=== PATIENT | female | born 1950 | race Hispanic/Latino ===

== ENCOUNTER 2017-03-16 10:27 | Outpatient (CLI) | payer OTHER, MEDICARE | END 2017-03-16 10:28 | disposition home or self-care (01) | LOC: LABHHL 10:27 | PROVIDERS: ATTEND Internal Medicine | DX: E11.8 Type 2 diabetes mellitus with unspecified complications (principal); I10 Essential (primary) hypertension; D64.9 Anemia, unspecified; F41.9 Anxiety disorder, unspecified | CPT/HCPCS: 36415; 83036 ==